=== PATIENT | male | born 1985 | race Caucasian/White ===

== ENCOUNTER 2022-12-08 06:11 | Emergency (ER) | payer BC ==
[~2022-12-08] VITALS: Ht 177.8 cm; Wt 108.4 kg
[2022-12-08] MEDS ORDERED: SUCRALFATE 1 GM TAB PO ONE (06:35)
[2022-12-08 06:42] LABS: BASO % 0.3 % (0.0-1.0); EOS # 0.1 10^3/uL (0.0-0.5); EOS % 0.8 % (0.0-3.0); HEMATOCRIT 48.6 % (42.0-52.0); HEMOGLOBIN 16.4 g/dl (13.5-17.5); LYMPH # 2.6 10^3/uL (1.5-5.0); LYMPH % 29.8 % (24.0-44.0); MEAN CORPUSCULAR HEMOGLOBIN 28.4 pg (27.0-33.0); MEAN CORPUSCULAR HGB CONC 33.7 g/dl (32.0-36.5); MEAN CORPUSCULAR VOLUME 84.2 fl (80.0-96.0); MONO # 0.8 10^3/uL (0.0-0.8); MONO % 9.6 % (2.0-8.0); NEUTROPHILS # 5.2 10^3/uL (1.5-8.5); PLATELET COUNT, AUTOMATED 196 10^3/uL (150-450); RED BLOOD COUNT 5.77 10^6/uL (4.30-6.10); WHITE BLOOD COUNT 8.8 10^3/uL (4.0-10.0)
[2022-12-08] MEDS ORDERED: ONDANSETRON 4MG 2ML VIAL IV ONE (07:05)
[2022-12-08] MEDS ORDERED: NS 1,000 ML IV ONE (07:05)
[2022-12-08 07:06] LABS: BLOOD UREA NITROGEN 19 MG/DL (9-23); CALCIUM LEVEL 8.6 MG/DL (8.5-10.1); CARBON DIOXIDE LEVEL 26 MMOL/L (20-31); CHLORIDE LEVEL 109 MMOL/L (98-107); CK-MB VALUE MASS < 1.0 NG/ML (<3.6); GLOMERULAR FILTRATION RATE > 60.0 (>60); GLUCOSE, FASTING 118 MG/DL (60-100); POTASSIUM SERUM 4.1 MMOL/L (3.5-5.1); SODIUM LEVEL 142 MMOL/L (136-145)
[2022-12-08 07:11] LABS: CPK CREATINE PHOSPHOKINASE 92 U/L (46-171); MB/CK RELATIVE INDEX 1.08 (< OR =4)
[2022-12-08 07:46] LABS: INR 0.96; PROTHROMBIN TIME 12.5 SECONDS (12.5-14.5)
[2022-12-08 07:47] LABS: PARTIAL THROMBOPLASTIN TIME 29.4 SECONDS (24.8-34.2)
[2022-12-08 07:49] LABS: D-DIMER QUANT < 0.27 ug/mL (<0.5)
[2022-12-08 08:17] LABS: CK-MB VALUE MASS < 1.0 NG/ML (<3.6)
[2022-12-08 08:24] LABS: CPK CREATINE PHOSPHOKINASE 79 U/L (46-171); MB/CK RELATIVE INDEX 1.26 (< OR =4)
[2022-12-08 09:02] LABS: LIPASE 32 U/L (12-53)
[2022-12-08 09:04] LABS: ALKALINE PHOSPHATASE 116 U/L (46-116); ALT/SGPT 62 U/L (7.0-40); AST/SGOT 36 U/L (<34); BILIRUBIN,DIRECT 0.1 MG/DL (<0.4); BILIRUBIN,TOTAL 0.4 MG/DL (0.3-1.2)
[2022-12-08 09:07] LABS: THYROID STIMULATING HORMONE 4.633 uIU/ML (0.55-4.78)
[2022-12-08] MEDS ORDERED: CARA1TAB6 PO (09:56)
[2022-12-08 10:15] VITALS: BP 153/94; TEMP 98.7
[2022-12-08 10:16] VITALS: O2SAT 96
== END 2022-12-08 10:31 | disposition home or self-care (01) ==
LOC: M ED 06:11
DX: R07.9 Chest pain, unspecified (principal); K21.9 Gastro-esophageal reflux disease without esophagitis; K58.9 Irritable bowel syndrome, unspecified; Z91.048 Other nonmedicinal substance allergy status; Z79.810 Long term (current) use of selective estrogen receptor modulators (SERMs)
CPT/HCPCS: 36415; 71045; 80048; 80076; 82550; 82553; 83690; 84443; 84484; 85025; 85379; 85610; 85730; 93005; 93041; 94760; 96361; 96374; 99285; J2405